=== PATIENT | female | born 1985 | race American Indian/Alaskan Native ===

== ENCOUNTER 2020-02-02 14:41 | Outpatient (CLI) | payer MEDICAID, OTHER ==
--- NOTE | 2020-02-02 16:34 | XRay Report ---
RIGHT KNEE 3 VIEWS INDICATION: RIGHT KNEE PAIN. COMPARISON: None. IMPRESSION: No acute osseous or soft tissue abnormality. No significant DJD. Signer Name: Ajith Ramirez Jr, MD Signed: 02/02/2020 4:30 PM Workstation Name: [id number]
== END 2020-02-02 14:42 | disposition home or self-care (01) ==
LOC: XRAY 14:41
PROVIDERS: ATTEND Orthopaedic Surgery
DX: M25.561 Pain in right knee (principal)

== ENCOUNTER 2021-10-05 06:06 | Day surgery (SDC) | payer OTHER ==
[2021-10-05] MEDS ORDERED: BACTERIOSTATIC SODIUM CHLORIDE 0.9% 30 ML VIAL INFILTRATI ONE (06:34)
[2021-10-05] MEDS ORDERED: LACTATED RINGERS 1,000 ML ONE (06:34)
[2021-10-05] MEDS ORDERED: BUPIVACAINE/PF (0.5%) 5 MG/1 ML 30 ML VIAL INFILTRATI ONE ×3 (07:31→08:36)
[2021-10-05] MEDS ORDERED: fentaNYL 250 MCG/5 ML INJ ONE (07:35)
[2021-10-05] MEDS ORDERED: ROCURONIUM 50 MG/5 ML INJ IV ONE (07:35)
[2021-10-05] MEDS ORDERED: propofoL 200 MG/20 ML VIAL IV ONE (07:35)
[2021-10-05] MEDS ORDERED: LIDOCAINE PF 100 MG/5 ML (CARDIAC SYRINGE) IV ONE (07:35)
[2021-10-05] MEDS ORDERED: HYDROmorphone 0.5 MG/0.5 ML INJ IV PRN ×2 (07:49)
[2021-10-05] MEDS ORDERED: MAGNESIUM OXIDE 400 MG TAB PO ONE (07:49)
[2021-10-05] MEDS ORDERED: ONDANSETRON 4 MG/2 ML INJ IV PRN (07:49)
[2021-10-05] MEDS ORDERED: ACETAMINOPHEN 500 MG TAB PO NR (07:49)
--- NOTE | 2021-10-05 07:49 | Anesthesia Consultation ---
Anesthesia Consult and Med Hx Date of service: 10/05/21 - Airway Anesthetic Teeth Evaluation: Good ROM Head & Neck: Adequate Mental/Hyoid Distance: Adequate Mallampati Class: Class I Intubation Access Assessment: Good - Pre-Operative Health Status ASA Pre-Surgery Classification: ASA2 Proposed Anesthetic Plan: General - Pulmonary Hx Smoking: Yes (MARIJUANA 2 JOINTS SEVERAL TIMES A WEEK, current 10/05/21) Hx Asthma: No COPD: No Hx Sleep Apnea: No (DK PRE SCREEN NEGATIVE) - Cardiovascular System Hx Hypertension: No Hx Peripheral Vascular Disease: Yes (Previous DVT, resolved 10/05/21) - Central Nervous System Hx Back Pain: Yes (AND NECK PAIN-BONE SPURS) Hx Psychiatric Problems: Yes - Gastrointestinal Hx Ulcer: No Hx Gastroesophageal Reflux Disease: No - Endocrine Hx End Stage Renal Disease: No Hx Insulin Dependent Diabetes: No Hx Thyroid Disease: No - Hematic Hx Anemia: Yes Hx Sickle Cell Disease: No - Other Systems Hx Alcohol Use: No Hx Substance Use: Yes (MARIJUANA JOINTS SEVERAL TIMES A WEEK) Hx Cancer: No - Additional Comments Anesthesia Medical History Comments: None
--- NOTE | 2021-10-05 07:49 | Anesthesia Day of Surgery ---
Anesthesia Day of Surgery - Day of Surgery Patient Examined: Yes Patient H&P Reviewed: Yes Patient is NPO: Yes
[2021-10-05] MEDS ORDERED: MIDAZOLAM 2 MG/2 ML INJ ONE (07:51)
--- NOTE | 2021-10-05 07:55 | Short Stay Summary ---
Short Stay Documentation Date of service: 10/05/21 Narrative H&P: 36y/o with undesired fertility. The patient is aware of other contraceptive options. She has elected for permanent sterilization. - History Principal diagnosis: Unwanted fertility Past Medical History: other (crohns disease; bipolar disorder) Past Surgical History: hernia repair, Other (LEEP; ) Social history: single - Allergies and Medications Current Medications: Allergies egg Allergy (Verified 10/19/14 09:20) Unknown wheat Allergy (Verified 10/19/14 09:20) Unknown Home Medications Medication Instructions Recorded Confirmed Last Taken Type Nuvaring Vaginal Ring 0.12 mg .ROUTE DAILY 10/19/14 10/05/21 09/28/21 09:00 History One-A-Day Trubiotics Capsule 1 cap PO DAILY 10/19/14 10/05/21 10/02/21 09:00 History Cetirizine HCl [Zyrtec 10mg tab] 10 mg PO DAILY 10/03/21 10/05/21 10/02/21 09:00 History buPROPion [Wellbutrin] 75 mg PO DAILY 10/03/21 10/05/21 10/02/21 09:00 History inFLIXimab (NF) [Remicade (Nf)] 1 dose IV PRN 10/03/21 10/05/21 09/12/21 History Active Medications Acetaminophen (Acetaminophen 500 Mg Tab) 1,000 mg PO ONCE ONE Stop: 10/05/21 07:50 Hydromorphone HCl (Hydromorphone 0.5 Mg/0.5 Ml Inj) 0.5 mg IV Q10MIN PRN PRN Reason: Pain , Severe (7-10) Hydromorphone HCl (Hydromorphone 0.5 Mg/0.5 Ml Inj) 0.25 mg IV Q10MIN PRN PRN Reason: Pain, Moderate (4-6) Lactated Ringer's (Lactated Ringers) 1,000 mls @ 125 mls/hr IV DIRECT ANASTASIA Magnesium Oxide (Magnesium Oxide 400 Mg Tab) 400 mg PO ONCE ONE Stop: 10/05/21 07:50 Methocarbamol (Methocarbamol 750 Mg Tab) 1,500 mg PO ONCE ONE Stop: 10/05/21 07:50 Ondansetron HCl (Ondansetron 4 Mg/2 Ml Inj) 4 mg IV ONCE PRN PRN Reason: Nausea And Vomiting - Physical exam General appearance: no acute distress Integumentary: no rash HEENT: Atraumatic Lungs: Clear to auscultation Breasts: deferred Heart: Regular rate Gastrointestinal: normal Female Genitourinary: deferred Rectal Exam: deferred Extremities: no ischemia Neurological: Normal gait - Brief post op/procedure progress note Date of procedure: 10/05/21 Pre-op diagnosis: Unwanted fertility Post-op diagnosis: same Procedure: Laparoscopic bilateral tubal ligation and salpingectomy Anesthesia: GETA Surgeon: HAWA REINA Estimated blood loss: minimal Pathology: list (Bilateral fallopian tubes) Specimen disposition: to lab Condition: stable - Hospital course Hospital course: The patient was admitted the day of surgery underwent a bilateral salpingectomy. Please see operative note for details surgery. Postoperative course was uneventful. - Disposition Condition at discharge: Good Disposition: 01 HOME / SELF CARE / HOMELESS Short Stay Discharge Plan Activity: no restrictions Diet: regular Additional Instructions: Follow-up is not required Follow-up as needed
[2021-10-05] MEDS ORDERED: LACTATED RINGERS 1,000 ML IV SCH ×2 (08:00→09:00)
[2021-10-05] MEDS ORDERED: NEOSTIGMINE 10MG/10 ML INJ MDV ONE (08:35)
[2021-10-05] MEDS ORDERED: dexAMETHasone 20 MG/5 ML VIAL ONE (08:35)
[2021-10-05] MEDS ORDERED: GLYCOPYRROLATE 0.4 MG/2 ML INJ ONE (08:35)
[2021-10-05] MEDS ORDERED: KETOROLAC 30 MG/1 ML INJ ONE (08:35)
[2021-10-05] MEDS ORDERED: ONDANSETRON 4 MG/2 ML INJ ONE (08:35)
--- NOTE | 2021-10-05 09:09 | Operative Report ---
Operative Report Operative Report: Date of surgery: October 05, 2021 Preoperative diagnosis: Unwanted fertility Postoperative diagnosis: Same as above Procedure: Laparoscopy; Bilateral salpingectomy Surgeon: Whitney Alegria M.D. Anesthesia: General endotracheal anesthesia Estimated blood loss: Minimal Pathology: Bilateral fallopian tubes Findings: Normal uterus tubes and ovaries; small right ovarian cyst Indication: 36-year-old -0-1-1 with undesired fertility. The patient is elected for permanent sterilization. Procedure: The patient was taken to the operating room and given general endotracheal anesthesia without complication. The patient is prepped and draped in a normal sterile fashion. A bivalve speculum was placed in the patient's vagina and a single-tooth tenaculum was placed on the anterior lip of the cervix .A uterine acorn manipulator was placed, and the bivalve speculum was then removed. Attention was then turned to the patient's abdomen where a 5 mm infraumbilical skin incision was then made. A Veress needle was placed and peritoneal entry was verified water-filled syringe. Insufflation of the peritoneal cavity was performed with CO2 gas. A 5 mm trocar was placed and the laparoscope was then inserted. The patient was then placed in Trendelenburg. A 7 mm suprapubic skin incision was then made. Under direct visualization a 7 mm trocar was then placed. An additional 5 mm left lateral trocar was also placed. General survey of the patient's abdomen revealed normal uterus tubes and ovaries. Patient had findings of a small right simple ovarian cyst.. The fallopian tube was then followed out to the fimbriated end. The LigaSure device was used in order to coagulate and transect the mesosalpinx. The fallopian tube was excised from the adnexa. The fallopian tube was removed through the 7 mm trocar. A needle was placed in the right ovarian cyst with drainage of serous fluid. This was performed on the contralateral side as well. The trocars were then removed. The pneumoperitoneum was then released. The 5 mm trocar laparoscope was then removed. Experienced bleeding coming from the suprapubic incision. Bovie cautery was used for hemostasis. The skin incisions were then closed with 4-0 Monocryl. The incisions were injected with quarter percent Marcaine. Dressings were applied to the incision. The vaginal instruments were then removed atraumatically. Then successfully extubated and taken to the recovery room. All sponge laps and needle counts were correct x2.
[2021-10-05 10:39] VITALS: BP 109/62
--- NOTE | 2021-10-05 11:29 | Post Anesthesia Evaluation ---
- Post Anesthesia Evaluation Patient Participated: Yes Airway Patent: Yes Stable Respiratory Function: Yes Nausea/Vomiting: No Temp > 96.8F: Yes Pain Manageable: Yes Adequeate Hydration: Yes Anesthesia Complications: No Block Receding Appropriately: Not Applicable Patient on Ventilator: No
== END 2021-10-05 10:20 | disposition home or self-care (01) ==
LOC: OR 06:06
PROVIDERS: ATTEND Obstetrics & Gynecology
DX: Z30.2 Encounter for sterilization (principal); Z79.899 Other long term (current) drug therapy; K21.9 Gastro-esophageal reflux disease without esophagitis; M19.90 Unspecified osteoarthritis, unspecified site; F31.9 Bipolar disorder, unspecified; F41.9 Anxiety disorder, unspecified; D64.9 Anemia, unspecified; Z91.81 History of falling; Z91.012 Allergy to eggs; Z88.8 Allergy status to other drugs, medicaments and biological substances; Z98.890 Other specified postprocedural states
CPT/HCPCS: 58670; 81025; 88302; J1100; J1170; J1815; J1885; J2001; J2250; J2405; J2704; J2710; J3010; J3490; J7120